=== PATIENT | female | born 1985 | race Caucasian/White ===

== ENCOUNTER 2018-04-25 20:58 | Emergency (ER) | payer OTHER ==
[2018-04-25 21:29] VITALS: BP 114/73
--- NOTE | 2018-04-25 21:39 | UC ---
Throat Pain/Nasal Morgan HPI - HPI Summary HPI Summary: Pt c/o nasal congestion, sinus pressure and pain X 10-14 days. - History of Current Complaint Chief Complaint: UCRespiratory Stated Complaint: SINUSES,COUGH,ST,PRETTY Time Seen by Provider: 04/25/18 21:18 Hx Obtained From: Patient Hx Last Menstrual Period: FEBRUARY 27, 2018, STATES WITH NEW BCP IT IS COMMON TO MISS A PERIOD ?: No Onset/Duration: Gradual Onset, Lasting Days - 10-14, Still Present, Worse Since - onset Severity: Moderate Pain Intensity: 7 Cough: Nonproductive Associated Signs & Symptoms: Positive: Hoarseness, Sinus Discomfort - Epiglottits Risk Factors Epiglottis Risk Factors: Negative - Allergies/Home Medications Allergies/Adverse Reactions: Allergies Allergy/AdvReac Type Severity Reaction Status Date / Time No Known Allergies Allergy Verified 09/17/16 11:54 Home Medications: Home Medications Estradiol Valerate/Dienogest [Natazia 28 Tablet] 1 tab PO DAILY 04/25/18 [ History Confirmed 04/25/18] Tretinoin [Retin-A] 0.1 % EX 04/25/18 [History] PMH/Surg Hx/FS Hx/Imm Hx Previously Healthy: Yes - Surgical History Surgical History: None - Family History Known Family History: Positive: Respiratory Disease - Social History Occupation: Employed Full-time Lives: With Family Alcohol Use: None Substance Use Type: None Smoking Status (MU): Never Smoked Tobacco Have You Smoked in the Last Year: No Review of Systems Constitutional: Fatigue Skin: Negative Eyes: Negative ENT: Sore Throat, Sinus Congestion, Sinus Pain/Tenderness Respiratory: Negative Cardiovascular: Negative Gastrointestinal: Negative Genitourinary: Negative Motor: Negative Neurovascular: Negative Musculoskeletal: Negative Neurological: Headache Psychological: Negative Is Patient Immunocompromised?: No All Other Systems Reviewed And Are Negative: Yes Physical Exam Triage Information Reviewed: Yes Appearance: Ill-Appearing Vital Signs: Initial Vital Signs Temp 98.6 F 04/25/18 21:24 Pulse 72 04/25/18 21:24 Resp 16 04/25/18 21:24 BP 114/73 04/25/18 21:24 Pulse Ox 100 04/25/18 21:24 Vital Signs Reviewed: Yes Eye Exam: Normal ENT Exam: Other ENT: Positive: Nasal congestion, Hoarse voice, Sinus tenderness Dental Exam: Normal Neck exam: Normal Respiratory Exam: Normal Cardiovascular Exam: Normal Musculoskeletal Exam: Normal Neurological Exam: Normal Psychological Exam: Normal Skin Exam: Normal Throat Pain/Nasal Course/Dx - Differential Dx/Diagnosis Differential Diagnosis/HQI/PQRI: Sinusitis, Tonsillitis, URI Provider Diagnoses: sinusitis Discharge - Sign-Out/Discharge Documenting (check all that apply): Patient Departure - Discharge Plan Condition: Stable Disposition: HOME Prescriptions: Amoxicillin PO (*) [Amoxicillin 875 MG (*)] 875 mg PO BID #20 tab Guaifenesin/Pseudoephedrne HCl [Mucinex D ER 1,200-120 mg Tab] 1 each PO DAILY # 10 tab Patient Education Materials: Sinusitis (ED) Referrals: Kallie Choudhury PA [Primary Care Provider] - If Needed - Billing Disposition and Condition Condition: STABLE Disposition: Home Attestation Statement User Type: Provider - I was available for consult. This patient was seen by the LETHA. The patient was not presented to, seen by, or examined by me. -Caden
[2018-04-25] MEDS ORDERED: Amoxicillin PO (*) 500 MG CAP PO ONE (21:42)
== END 2018-04-25 21:48 | disposition home or self-care (01) ==
LOC: UCCORT 20:58
DX: J32.9 Chronic sinusitis, unspecified (principal)
CPT/HCPCS: 99212; A9270-GY; G0463

== ENCOUNTER 2018-08-09 20:38 | Emergency (ER) | payer OTHER ==
--- OUTSIDE RECORDS SUMMARY | 2018-08-09 20:53 | XMS REPORT ---
:1985 External Reference #:[id number] Demographics Address [address] [place] [address] Home Phone [phone] Mobile Phone [phone] Work Phone [phone] Preferred Language Tajik Marital Status Not Or Yazidi Affiliation Unknown Race White Ethnic Group Not Or Author Organization [facility] Address [address] [place] [address] Phone [phone] Care Team Providers Name Role Phone Darci Choudhury RPAC Primary Care Physician Unavailable Payers Type Date Identification Numbers Payment Provider Subscriber Commercial Policy Number: [id number] [place] Medicaid Kasie Knox PayID: [id number] [address] [place] [address] Medicaid Expires: 2018 Policy Number: [id number] Medicaid Kasie Holbrook [employer] Name: 1 1 [address] PayID: [id number] [place] [address] Workers Compensation Policy Number: [id number] [employer] PayID: [id number] [address] [place] [address] Problems Date Description Provider Status Onset: 05/02/2014 Family history of malignant neoplasm Darci Choudhury RPAC Active of breast Onset: 02/01/2012 Varicose veins of lower extremity Darci Choudhury RPAC Active Onset: 02/01/2012 Anxiety state Darci Choudhury RPAC Active Onset: 12/14/2015 Fibrocystic disease of breast Darci Choudhury RPAC Active Onset: 08/08/2017 Cyst of thyroid Darci Choudhury RPAC Active Note: several, noted 08/2017 Onset: 10/24/2017 Acne Darci Choudhury RPAC Active Family History Date Family Member(s) Problem(s) Comments Father Hypothyroidism Mother Hypercholesterolemia Mother Breast Cancer @ 48 Mother hypoglycemia Paternal Grandmother Brain tumor Maternal Grandmother Alcoholism Maternal Aunts Breast Cancer @ 59 yrs old Social History Type Date Description Comments Lives With Lives With Daughter Lives With Son Diet Healthy, Well Balanced Occupation 07/2017 Student Masters Degree, on line Cigarette Use Former Cigarette Smoker ETOH Use Denies alcohol use Smoking Patient denies history of smoking Allergies, Adverse Reactions, Alerts Date Description Reaction Status Severity Comments 05/13/2015 NKDA active Medications Medication Date Status Form Strength Qnty SIG Indications Ordering Provider Minocycline 06/20/ Active Capsules 100mg 1 cap by YAQUELIN Dye 2018 mouth bid MD Madi Natazia 03/07/ Active Tablets 3/2-2/2-3/ 28tabs 1 tab by Awais 2017 1 mg mouth every , day M.D. Tretinoin 08/09/ Active Cream 0.025% apply to Brenda 2017 affected , area twice Naty weekly C., Aczone 08/09/ Active Gel 5% apply to [facility] 2017 affected , area twice a Naty day C., Clindamycin 08/09/ Active Solution 1% apply to [facility] Phosphate 2016 affected , area twice a Naty day C., Benzoyl 08/09/ Active Liquid 5% apply to Brenda Peroxide Wash 2017 affected , area every Naty day C., Proair HFA 03/02/ Active Aerosol 108(90Base 8.500g 1-2 493.02 Daiana 2014 ) mcg/Act m inhalations Lenore, every 4 M.D. hours as needed Mircette 12/06/ Hx Tablets 0.15-0.02/ 28tabs 1 by mouth Awais 2017 - 0.01 mg every day Fredy, 03/07/ (21/) M.D. 2018 Low-Ogestrel 02/13/ Hx Tablets 0.3-30mg-m 28tabs 1 tab by Awais 2016 - cg mouth every Fredy, 12/06/ day M.D. 2018 Claritin 02/09/ Hx Tablets 10mg 90tabs 1 by mouth Gavin 2015 - every day Carlos Fermin, 07/19/ DO 2015 Naproxen 10/16/ Hx Tablets 500mg 60tabs take one M26.60 Gavin 2015 - tablet by Carlos Fermin, 02/09/ mouth twice DO 2015 a day with food Lo/Ovral (28) 07/06/ Hx Tablets 28tabs 1 tab by Awais, 0.3-30 MG-mcg 2014 - mouth every Fredy, 02/13/ day M.D. 2016 Lo/Ovral-28 08/31/ Hx Tablets 28tabs take 1 Gavin, 2011 - tablet by Carlos Fermin, 07/06/ mouth every DO 2014 day Cephalexin / Hx Capsules 500mg 1 tab by Unknown 0000 - mouth bid 2014 Cephalexin / Hx Capsules 500mg 1 cap by Unknown 0000 mouth bid (Dr Dye) Immunizations CPT Code Status Date Vaccine Lot # [id number] Given 07/31/2018 Influenza Virus Vaccine, Quadrivalent, 36 Mos+, [id number] Given 02/28/2012 Tdap injection Vital Signs Date Vital Result Comment 07/31/2018 BP Systolic 105 mmHg BP Diastolic 68 mmHg Body Temperature 97.9 F Heart Rate 67 /min Respiratory Rate 18 /min Height 65 inches 5'5" Weight 163.25 lb BMI (Body Mass Index) 27.2 kg/m2 BSA (Body Surface Area) 1.81 m2 [place] body weight in kilograms 57 O2 % BldC Oximetry 100 % 07/20/2017 BP Systolic Sitting Left Arm 111 mmHg BP Diastolic Sitting Left Arm 70 mmHg Heart Rate 62 /min Respiratory Rate 16 /min Height 65 inches 5'5" Weight 164.00 lb BMI (Body Mass Index) 27.3 kg/m2 BSA (Body Surface Area) 1.82 m2 [place] body weight in kilograms 57 Last Menstrual Period 7024669 approximate 07/19/2016 BP Systolic Sitting Right Arm 112 mmHg BP Diastolic Sitting Right Arm 68 mmHg Height 65 inches 5'5" Weight 156.00 lb BMI (Body Mass Index) 26.0 kg/m2 BSA (Body Surface Area) 1.78 m2 Last Menstrual Period 2590911 02/10/2016 BP Systolic 118 mmHg BP Diastolic 64 mmHg Height 65 inches 5'5" Weight 154.00 lb BMI (Body Mass Index) 25.6 kg/m2 BSA (Body Surface Area) 1.77 m2 12/23/2015 BP Systolic Sitting Left Arm 109 mmHg BP Diastolic Sitting Left Arm 73 mmHg Heart Rate 70 /min Height 65 inches 5'5" Weight 153.00 lb BMI (Body Mass Index) 25.5 kg/m2 BSA (Body Surface Area) 1.77 m2 O2 % BldC Oximetry 100 % 10/16/2015 BP Systolic Sitting Left Arm 112 mmHg BP Diastolic Sitting Left Arm 68 mmHg Body Temperature 98.4 F Height 66 inches 5'6" Weight 153.25 lb BMI (Body Mass Index) 24.7 kg/m2 BSA (Body Surface Area) 1.79 m2 10/09/2015 BP Systolic Sitting Left Arm 108 mmHg BP Diastolic Sitting Left Arm 66 mmHg Heart Rate 85 /min Height 66 inches 5'6" Weight 158.25 lb BMI (Body Mass Index) 25.5 kg/m2 BSA (Body Surface Area) 1.81 m2 O2 % BldC Oximetry 100 % 07/21/2015 BP Systolic 105 mmHg Left arm sitting BP BP Diastolic 68 mmHg Left arm sitting BP BP Systolic Sitting Left Arm 118 mmHg Left arm standing BP BP Diastolic Sitting Left Arm 72 mmHg Left arm standing BP Heart Rate 72 /min Height 66 inches 5'6" Weight 152.00 lb BMI (Body Mass Index) 24.5 kg/m2 BSA (Body Surface Area) 1.78 m2 O2 % BldC Oximetry 100 % 06/19/2015 BP Systolic 110 mmHg BP Diastolic 66 mmHg Heart Rate 72 /min Height 66 inches 5'6" Weight 149.50 lb BMI (Body Mass Index) 24.1 kg/m2 BSA (Body Surface Area) 1.77 m2 O2 % BldC Oximetry 100 % 05/13/2015 BP Systolic 102 mmHg BP Diastolic 62 mmHg Height 66 inches 5'6" Weight 152.00 lb BMI (Body Mass Index) 24.5 kg/m2 BSA (Body Surface Area) 1.78 m2 Last Menstrual Period [id number] 03/02/2015 Body Temperature 96.4 F Heart Rate 77 /min Respiratory Rate 18 /min Weight 154.00 lb O2 % BldC Oximetry 97 % 06/27/2014 BP Systolic 112 mmHg BP Diastolic 62 mmHg Height 65 inches 5'5" Weight 145.00 lb 05/02/2014 BP Systolic 102 mmHg BP Diastolic 66 mmHg Height 65 inches 5'5" Weight 148.00 lb 10/23/2013 BP Systolic 104 mmHg BP Diastolic 62 mmHg Body Temperature 100.0 F Height 65 inches 5'5" Weight 148.00 lb BSA (Body Surface Area) 1.74 m2 04/16/2013 BP Systolic 110 mmHg BP Diastolic 62 mmHg Height 65 inches 5'5" Weight 140.00 lb BSA (Body Surface Area) 1.70 m2 03/19/2013 BP Systolic 110 mmHg BP Diastolic 62 mmHg Weight 141.00 lb 07/06/2012 BP Systolic 110 mmHg BP Diastolic 62 mmHg Body Temperature 98.7 F Weight 142.00 lb 04/05/2012 BP Systolic 90 mmHg BP Diastolic 62 mmHg Heart Rate 76 /min Height 65 inches 5'5" Weight 145.00 lb 02/02/2012 BP Systolic 108 mmHg BP Diastolic 66 mmHg Weight 148.00 lb 07/15/2011 BP Systolic 96 mmHg BP Diastolic 60 mmHg Body Temperature 97.2 F Height 65 inches 5'5" Weight 146.00 lb 06/02/2011 BP Systolic 108 mmHg BP Diastolic 62 mmHg Height 65 inches 5'5" Weight 146.00 lb Results Test Date Test Result H/L Range Note LDL Cholesterol Profile 07/31/2018 Cholesterol 204 mg/dL High <200 1, 2 Triglycerides 139 mg/dL <150 1, 3 HDL Cholesterol 84 mg/dL >40 1, 4 LDL-Cholesterol 92 mg/dL < 100 1, 5 Comprehensive Metabolic Panel 07/31/2018 Glucose 84 mg/dL 74-106 1 BUN 15 mg/dL 7-18 1 Creatinine 0.8 mg/dL 0.6-1.3 1 Glom Filtration Rate, Estimate >60 mL/min >60 1 If >60 mL/min >60 1, 6 BUN/Creat 18.7 ratio 1 Sodium 143 mmol/L 136-145 1 Potassium 4.1 mmol/L 3.5-5.1 1 Chloride 107 mmol/L 98-107 1 Carbon Dioxide 29 mmol/L 21-32 1 Anion Gap 7 mEq/L Low 8-16 1 Calcium 8.7 mg/dL 8.5-10.1 1 Total Protein 6.6 g/dL 6.4-8.2 1 Albumin 3.6 g/dL 3.4-5.0 1 Globulin 3.0 g/dL 1.9-4.3 1 Alb/Glob 1.2 ratio 1 Bilirubin,Total 0.4 mg/dL 0.2-1.0 1 Sgot/Ast 23 U/L 15-37 1 SGPT/Alt 34 U/L 12-78 1 Alkaline Phosphatase 57 U/L 45-117 1 CBC W/Automated Diff 07/31/2018 White Blood Count 4.8 K/uL 3.1-10.7 1 Red Blood Count 4.62 M/uL 3.90-5.40 1 Hemoglobin 14.1 gm/dL 11.6-15.8 1 Hematocrit 42.0 % 36.0-46.1 1 Mean Cell Volume 90.9 fl 80.9-99.0 1 Mean Corpuscular HGB 30.5 pg 25.9-32.7 1 Mean Corpuscular HGB Conc 33.6 g/dL 30.8-34.3 1 Platelet Count 278 K/uL 155-360 1 Red Cell Distri Width SD 41.0 fl 3-47 1 Red Cell Distri Width %CV 12.6 % 11.7-14.4 1 Mean Platelet Volume 10.3 fL 8.9-12.4 1 Neut% 45.4 % 40.4-72.8 1 Lymph % 40.3 % 20.0-42.0 1 [place] % 8.5 % 4.3-13.2 1 Eo% 5.0 % 0.0-6.6 1 Bas% 0.8 % 0.0-1.1 1 Neut# 2.20 K/uL 1.8-7.0 1 Lymph # 1.95 K/uL 1.0-4.0 1 [place] # 0.41 K/uL 0.3-0.9 1 Eos # 0.24 K/uL 0.0-0.5 1 Baso # 0.04 K/uL 0.0-0.1 1 TSH Reflex FT4 And/Or FT3 07/20/2017 Thyroid Stim Hormone 4.01 uIU/mL 0.30-4.20 7 Reflex add FT3? Y 7 Reflex add FT4? Y 7 Comprehensive Metabolic Panel 07/20/2017 Glucose 64 mg/dL Low 74-106 7 BUN 17 mg/dL 7-18 7 Creatinine 1.0 mg/dL 0.6-1.3 7 Glom Filtration Rate, Estimate >60 mL/min >60 7 If >60 mL/min >60 7, 8 BUN/Creat 17.0 ratio 7 Sodium 142 mmol/L 136-145 7 Potassium 4.0 mmol/L 3.5-5.1 7 Chloride 106 mmol/L 98-107 7 Carbon Dioxide 28 mmol/L 21-32 7 Anion Gap 8 mEq/L 8-16 7 Calcium 8.5 mg/dL 8.5-10.1 7 Total Protein 6.4 g/dL 6.4-8.2 7 Albumin 3.3 g/dL Low 3.4-5.0 7 Globulin 3.1 g/dL 1.9-4.3 7 Alb/Glob 1.1 ratio 7 Bilirubin,Total 0.5 mg/dL 0.2-1.0 7 Sgot/Ast 12 U/L Low 15-37 7, 9 SGPT/Alt 22 U/L 12-78 7 Alkaline Phosphatase 47 U/L 45-117 7 Reflex add FT3? Y 7 Reflex add FT4? Y 7 CBS W/Automated Diff 07/20/2017 White Blood Count 5.2 K/uL 3.1-10.7 7 Red Blood Count 4.80 M/uL 3.90-5.40 7 Hemoglobin 14.6 gm/dL 11.6-15.8 7 Hematocrit 43.0 % 36.0-46.1 7 Mean Cell Volume 89.6 fl 80.9-99.0 7 Mean Corpuscular HGB 30.4 pg 25.9-32.7 7 Mean Corpuscular HGB Conc 34.0 g/dL 30.8-34.3 7 Platelet Count 280 K/uL 150-400 7 Red Cell Distri Width SD 40.5 fl 3-47 7 Red Cell Distri Width %CV 12.6 % 11.7-14.4 7 Mean Platelet Volume 10.4 fL 8.9-12.4 7 Neut% 51.1 % 40.4-72.8 7 Lymph % 36.6 % 20.0-42.0 7 [place] % 6.9 % 4.3-13.2 7 Eo% 4.8 % 0.0-6.6 7 Bas% 0.6 % 0.0-1.1 7 Neut# 2.68 K/uL 1.8-7.0 7 Lymph # 1.92 K/uL 1.0-4.0 7 [place] # 0.36 K/uL 0.3-0.9 7 Eos # 0.25 K/uL 0.0-0.5 7 Baso # 0.03 K/uL 0.0-0.1 7 Laboratory test finding 07/20/2017 Vitamin D,25-Hydroxy 42.7 ng/mL 30.0- 100.0 7, 10 Comprehensive Metabolic 07/22/2015 Glucose 94 mg/dL 74-106 Panel BUN 13 mg/dL 7-18 Creatinine 0.9 mg/dL 0.6-1.3 Glom Filtration Rate, Estimate >60 mL/min >60 If >60 mL/min >60 11 BUN/Creat 14.4 ratio Sodium 142 mmol/L 136-145 Potassium 3.7 mmol/L 3.5-5.1 Chloride 108 mmol/L High 98-107 Carbon Dioxide 27 mmol/L 21-32 Anion Gap 7 mEq/L Low 8-16 Calcium 8.9 mg/dL 8.5-10.1 Total Protein 6.9 g/dL 6.4-8.2 Albumin 3.6 g/dL 3.4-5.0 Globulin 3.3 g/dL 1.9-4.3 Alb/Glob 1.1 ratio Bilirubin,Total 0.6 mg/dL 0.2-1.0 Sgot/Ast 14 U/L Low 15-37 12 SGPT/Alt 23 U/L 12-78 Alkaline Phosphatase 46 U/L 45-117 Laboratory test finding 07/22/2015 Thyroid Stim Hormone 1.64 uIU/mL 0.36- 3.74 CBS W/Automated Diff 07/22/2015 White Blood Count 5.9 K/uL 3.1-10.7 Red Blood Count 4.76 M/uL 3.90-5.40 Hemoglobin 14.7 gm/dL 11.6-15.8 Hematocrit 43.3 % 36.0-46.1 Mean Cell Volume 91.0 fl 80.9-99.0 Mean Corpuscular HGB 30.9 pg 25.9-32.7 Mean Corpuscular HGB Conc 33.9 g/dL 30.8-34.3 Platelet Count 292 K/uL 155-360 Red Cell Distri Width SD 40.4 fl 3-47 Red Cell Distri Width %CV 12.5 % 11.7-14.4 Mean Platelet Volume 10.3 fL 8.9-12.4 Neut% 54.3 % 40.4-72.8 Lymph % 36.0 % 17.0-46.1 [place] % 6.8 % 4.3-13.2 Eo% 2.4 % 0.0-6.6 Bas% 0.5 % 0.0-1.1 Neut# 3.21 K/uL 1.0-7.0 Lymph # 2.13 K/uL 1.8-7.0 [place] # 0.40 K/uL 0.3-0.9 Eos # 0.14 K/uL 0.0-0.5 Baso # 0.03 K/uL 0.0-0.1 Affirm 06/27/2014 Tavia Negative 13 Gardnerella Negative Trichomonas Negative Laboratory test finding 05/02/2014 Cytology Pap See Note 14 Laboratory test finding 04/16/2013 Pediatric/Maternal No RPR TNP Nonreactive RPR Titer TNP Syphilis IgG Nonreactive Nonreactive 15 GC / Chlamydia 04/16/2013 Chlamydia Negative GC Negative 16 Laboratory test finding 04/16/2013 Pap plus HPV HPV HR- LRQ 17 Lipid Profile (Trig/Chol/HDL) 04/16/2013 Cholesterol 157 mg/dL Less than 200 Cholesterol/HDL Ratio 3.1 Average 1-4.44 HDL Cholesterol 51 mg/dL 40-60 18 LDL Cholesterol 92.4 Less Than 100 19 Triglycerides 68 mg/dL 40-200 Hepatitis Acute Panel 04/16/2013 Hepatitis A AB IgM Nonreactive Nonreactive Hepatitis B Core IgM Nonreactive Nonreactive Hepatitis B Surface Antigen Nonreactive Nonreactive Hepatitis C Antibody Nonreactive Nonreactive HIV 1/2 AB Evaluation 04/16/2013 HIV 1 2 Antibody Nonreactive Nonreactive 20 CBC Auto Diff 04/16/2013 Abs Basophils 0.1 10^3/uL 0-0.2 Abs Eosinophils 0.1 10^3/uL 0-0.6 Abs Lymphocytes 2.2 10^3/uL 1.0-4.8 Abs Monocytes 0.4 10^3/uL 0-0.8 Abs Neutrophils 3.6 10^3/uL 1.5-7.7 Abs Nucleated RBC 0.01 10^3/uL Basophil % 0.9 % 0-2 Eosinophil % 1.8 % 0-6 Granulocyte % 56.5 % 38-83 Hematocrit 44 % 35-47 Hemoglobin 14.9 g/dL 12.0-16.0 Lymphocyte % 34.7 % 25-47 Mean Corpuscular HGB Conc 34 g/dL 31-36 Mean Corpuscular Hemoglobin 31 pg 27-31 Mean Corpuscular Volume 90 fL 80-97 Mean Platelet Volume 8 um3 7.4-10.4 Monocyte % 6.1 % 1-9 Nucleated Red Blood Cells % 0.1 Platelet Count 318 10^3/uL 150-450 Red Blood Count 4.88 10^6/uL 4.0-5.4 Red Cell Distribution Width 13 % 10.5-15 White Blood Count 6.4 10^3/uL 4.8-10.8 Basic Metabolic Panel 04/16/2013 Anion Gap 5.0 mmol/L 2-11 BUN/Creatinine Ratio 18.8 8-20 Blood Urea Nitrogen 15 mg/dL 6-24 Calcium 9.4 mg/dL 8.1-9.9 Chloride 103 mmol/L 101-111 Co2 Carbon Dioxide 29.0 mmol/L 22-32 Creatinine 0.80 mg/dL 0.50-1.40 Egfr 109.1 >60 21 Egfr Non- 84.8 >60 Glucose 74 mg/dL 70-100 Potassium 4.4 mmol/L 3.5-5.0 Sodium 137 mmol/L 133-145 Laboratory test finding 04/05/2012 Cytology Pap See Note 22 Laboratory test finding 02/08/2012 D-Dimer, Quantitative < 0.22 ug/mL 23 Laboratory test finding 08/16/2011 Folic Acid 18.9 ng/mL High 2-16 TSH 1.88 MIU/ML 0.34-5.60 Vitamin B12 255 pg/mL 180-914 CBC With Manual Diff 08/16/2011 Absolute Neutrophil Count 3.1 Eosinophil 3 % 0-6 Hematocrit 42 % 35-47 Hemoglobin 14.6 g/dL 12.0-16.0 Lymphocyte 51 % High 25-47 Mean Corpuscular HGB Cone 35 g/dL 32-36 Mean Corpuscular Hemoglob 32 pg High 27-31 Mean Corpuscular Volume 90 um3 79-97 Mean Platelet Volume 8.1 um3 7.4-10.4 Monocyte 1 % 0-13 Platelet Count 266 CUMM 150-450 Polychromasia Slight Polysegmented Neutrophil 45 % 38-83 Red Cell Count 4.62 CUMM 4.2-5.4 Redcell Distribution WDTH 12 % 10.5-15 White Blood Count 7.0 CUMM 4.8-10.8 1 E78.5 L70.9 2 Reference Guidelines*: Desirable: ........... < 200 mg/dL Borderline High: ..... 200-239 mg/dL High: ................ >=240 mg/dL * The National Cholesterol Education Program (NCEP) 3 Reference Guidelines*: Normal: ............. < 150 mg/dL Borderline High: .... 150-199 mg/dL High: ............... 200-499 mg/dL Very High: .......... > 500 mg/dL * Source: National Cholesterol Education Program (NCEP) 4 Reference Guidelines*: Low HDL: ..... < 40 mg/dL Normal: ..... 40-60 mg/dL Desirable: ... > 60 mg/dL *The National Cholesterol Education Program(NCEP) 5 Reference Guidelines*: Optimal:........... <100 mg/dL Near Optimal....... 100-129 mg/dL Borderline High.... 130-159 mg/dL High............... 160-189 mg/dL Very High.......... >=190 mg/dL * Source: National Cholesterol Education Program (NCEP) 6 Note: Persistent reduction for 3 months or more in an eGFR <60 mL/min/1.73 m2 defines CKD. Patients with eGFR values >/=60 mL/min/1.73 m2 may also have CKD if evidence of persistent proteinuria is present. The original MDRD equation for estimated GFR is not valid for patients less than 18 years of age. Additional information may be found at www.kdoqi.org. 7 Z12.4 E04.1 L70.9 E04.1 L70.9 Z12.4 8 Note: Persistent reduction for 3 months or more in an eGFR <60 mL/min/1.73 m2 defines CKD. Patients with eGFR values >/=60 mL/min/1.73 m2 may also have CKD if evidence of persistent proteinuria is present. The original MDRD equation for estimated GFR is not valid for patients less than 18 years of age. Additional information may be found at www.kdoqi.org. 9 Values below the stated reference ranges of AST and ALT can be seen in normal populations. Clinical correlation is suggested. 10 Vitamin D deficiency has been defined by the [place] of Medicine and an Endocrine Society practice guideline as a level of serum 25-OH vitamin D less than 20 ng/mL (1,2). The Endocrine Society went on to further define vitamin D insufficiency as a level between 21 and 29 ng/mL (2). 1. IOM ([place] of Medicine). 2010. Dietary reference intakes for calcium and D. [place]: The National Academies Press. 2. Margaret MF, Jyothi NC, Denzel PRETTY, et al. Evaluation, treatment, and prevention of vitamin D deficiency: an Endocrine Society clinical practice guideline. JCEM. 2010; 96(7):1911-30. Performed at: RN - [facility] [address] [id number] [employer]: Xiomara Bay MD, Phone: [phone] 11 Note: Persistent reduction for 3 months or more in an eGFR <60 mL/min/1.73 m2 defines CKD. Patients with eGFR values >/=60 mL/min/1.73 m2 may also have CKD if evidence of persistent proteinuria is present. The original MDRD equation for estimated GFR is not valid for patients less than 18 years of age. Additional information may be found at www.kdoqi.org. 12 Values below the stated reference ranges of AST and ALT can be seen in normal populations. Clinical correlation is suggested. 13 [facility] [address], [address] [place] [address] AFFIRM VAGINOSIS / VAGINITIS REPORT Name: Kasie Knox : 1985 (Age: 29) Sex: F Location: [facility] Med. Rec. # [id number] Date Collected: 2013 Billing #: [id number] Date Received: 06/27/2014 Requisition # [id number] Physician (s): DARCI BHAT Source of Specimen: Vaginal Results: Tavia species DNA Probe NEGATIVE Gardnerella vaginalis DNA Probe NEGATIVE Trichomonas vaginalis DNA Probe NEGATIVE Reported: 06/30/2014 Electronic Signature ga Kelsey Camar[place] [facility] ICD-9 Codes: 616.10 14 Cytology Laboratory [address], [address] [email or web address] [address] CYTOLOGY REPORT Name: Kasie Knox : 1985 (Age: 29) Sex: F Location: [facility]. Rec. # [id number] Date Collected: 05/02/2014 Billing #: [id number] Date Received: 05/02/2014 Requisition # [id number] Physician(s): DARCI BHAT Source of Specimen: ENDOCERVICAL/ECTOCERVICAL THIN PREP Clinical Information: Date of Last Menstrual Period: 04/05/14 Interpretation: NEGATIVE FOR INTRAEPITHELIAL LESION OR MALIGNANCY. Specimen Adequacy: SATISFACTORY FOR EVALUATION. Additional Findings: ENDOCERVICAL/TRANSFORMATION ZONE PRESENT. mas Electronic Signature LIEN Vann (ASCP) Reported: 05/07/2014 [facility] [employer] [facility] ICD-9 Code(s) V76.2 15 Warning: A positive result is not useful for establishing a diagnosis of syphilis. In most situations, such a result may reflect a prior treated infection; a negative result can exclude a diagnosis of syphilis except for incubating or early primary disease. 16 [facility] [address], [address] [place] [address] GC / CHLAMYDIA REPORT Name: Ata Kasie SheronDivina : 1985 (Age: 28) Sex: F Location: [facility]. Rec. # [id number] Date Collected: 04/16/2013 Billing #: [id number] Date Received: 04/16/2013 Physician(s): DARCI BAHT Source of Specimen: ThinPrep, APTIMA Results: Neisseria gonorrhoeae NEGATIVE Chlamydia trachomatis NEGATIVE Comment: This analysis was performed using second generation nucleic acid amplification testing (NAAT). Reported: 04/17/2013 Electronic Signature lien [place]ar[place] [facility] [employer] [facility] ICD-9 Codes: A: 616.0 17 Cytology Laboratory [address], [address] [place] [address] CYTOLOGY REPORT Name: Kasie Berumen : 1985 (Age: 28) Sex: F Location: [facility] Rec. # [id number] Date Collected: 04/16/2013 Billing #: [id number] Date Received: 04/16/2013 Physician(s): DARCI BHAT Source of Specimen: ENDOCERVICAL/ECTOCERVICAL THIN PREP Clinical Information: Date of Last Menstrual Period: 04/09/13 Menstrual History: Regular Specimen Adequacy: SATISFACTORY FOR EVALUATION. ADEQUATE ENDOCERVICAL/TRANSFORMATION ZONE. SCANT CELLULARITY. General Categorization: NEGATIVE FOR INTRAEPITHELIAL LESION OR MALIGNANCY. kfs Electronic Signature LIEN Johns (ASCP) Reported: 04/18/2013 Also seen by :LIEN Grullon (ASCP) Cyt[facility] HPV High Risk Date Ordered: 04/17/2013 Status: Signed Out Date Reported: 04/18/2013 High Risk NEGATIVE (HPV types 16, 18, 31, 33, 35, 39, 45, 51, 52, 56, 58, 59, 66, 68) Cervista HPV HR Electronic Signature Tali Live PA [facility] HPV Low Risk Date Ordered: 04/17/2013 Status: Signed Out Date Reported: 04/18/2013 Low Risk QUANTITY NOT SUFFICIENT (HPV types 6, 11) In situ hybridization Electronic Signature Eduard Villegas MD [facility] ICD-9 Code(s) V72.31 18 HDL Interpretation: Undesirable: High Risk: Less than 40 mg/dL Desirable: Low Risk: Greater than 60 mg/dL 19 LDL Interpretation: Low Risk Optimal Level: LDL Less than 100 mg/dL Near or Above Optimal: LDL 100-129 mg/dL Borderline High Risk: LDL 130-159 mg/dL High Risk : LDL 160-189 mg/dL Very High Risk: LDL Greater than 189 mg/dL 20 It is recognized that currently available assays for the detection of antibodies to HIV-1 and/or HIV-2 may not detect all infected individuals. HIV antibodies may be undetectable in some stages of the infection and in some clinical conditions. The performance of this assay has not been established for populations of infants or children. Assayed by Chemiluminescence Microparticle Immunoassay on the Siemens Advia MedServeaur CP. Values obtained with different methods or kits cannot be used interchangeably.The diagnostic specificity of the ADVIA Centaur 1/O/2 Enhanced assay in the low risk population was 99.90% (6052/6058) with a 95% confidence interval of 99.78 to 99.96%. 21 Because ethnic data is not always readily available, this report includes an eGFR for both -Americans and non- Americans. The National Kidney Disease Education Program (NKDEP) does not endorse the use of the MDRD equation for patients that are not between the ages of 18 and 70, are , have extremes of body size, muscle mass, or nutritional status, or are non- or non-. According to the National Kidney Foundation, irrespective of diagnosis, the stage of the disease is based on the level of kidney function: Stage Description GFR(mL/min/1.73 m(2)) 1 Kidney damage with normal or decreased GFR 90 2 Kidney damage with mild decrease in GFR 60- 89 3 Moderate decrease in GFR 30-59 4 Severe decrease in GFR 15-29 5 Kidney failure <15 (or dialysis) 22 Cytology Laboratory [address] [place] [address], [address] [place] [address] CYTOLOGY REPORT Name: Kasie Berumen : 1985 (Age: 27) Sex: F Location: [facility] Date Collected: 04/05/2012 Billing #: [id number] Date Received: 04/05/2012 Physician( s): DARCI BHAT Source of Specimen: ENDOCERVICAL/ECTOCERVICAL THIN PREP Clinical Information: Date of Last Menstrual Period: 03/09/12 Menstrual History: Regular Specimen Adequacy: SATISFACTORY FOR EVALUATION. ADEQUATE ENDOCERVICAL/TRANSFORMATION ZONE. General Categorization: NEGATIVE FOR INTRAEPITHELIAL LESION OR MALIGNANCY. tfn Electronic Signature LIEN Munoz (ASCP) Reported: 04/09/2012 Cytology Outreach [facility] ICD-9 Code(s) V72.31 23 <=0.49 ug/mL - Low likelihood of DIC, DVT or Pulmonary Embolism >0.49 ug/ mL - Additional testing should be done to rule out DIC, DVT, or Pulmonary embolism as clinically indicated. ([facility] has established a 97.89% negative predictive value for thrombotic disease when a cutoff value of 0.5 ug/mL is used.) Procedures Date CPT Code Description Status 07/22/2015 42451 Event Monitor Inter/Review Only Completed 07/21/2015 25850 EKG-Tracing And Report Completed 08/25/2009 13789 Pulse Oximetry Completed Encounters Type Date Location Provider CPT E/M Dx Office Visit 07/20/2017 9:00a Primary Care Office Darci Choudhury 43063 Z00.01 [facility] Z12.4 E04.1 L70.9 Office Visit 07/19/2016 9:00a Primary Care Office Darci Choudhury 39925 Z12.4 [facility] N60.19 I83.891 Z00.01 Office Visit 02/10/2016 9:30a Primary Care Office Darci Choudhury 79282 R59.0 [facility] Office Visit 01/22/2016 11:30a [place] [address] Z80.3 N60.19 Office Visit 12/31/2015 11:00a [place] [address] R59.0 Office Visit 12/23/2015 10:45a Primary Care Office Darci Choudhury 18921 R59.0 [facility] M79.1 Z80.3 N60.19 Office Visit 10/16/2015 11:15a Primary Care Office Darci Choudhury 90486 M26.60 [facility] Office Visit 10/09/2015 10:00a Primary Care Office Darci Choudhury 79161 I49.9 [facility] Office Visit 07/21/2015 1:00p Primary Care Office Darci Choudhury 30089 R42 RPA Office Visit 06/19/2015 2:30p Primary Care Office Darci Choudhury 73979 R42 [facility] R59.0 Office Visit 05/13/2015 2:15p Primary Care Office Darci Choudhury 51314 V72.31 [facility] V76.2 611.79 Office Visit 03/02/2015 10:30a Primary Care Office Darci Choudhury 05449 493.02 [facility] Plan of Care 07/31/2018 - Darci Choudhury, RPACZ00.00 Encntr for general adult medical exam w/o abnormal xxzevdumS39.9 Acne, cdunaenztopT12.5 Hyperlipidemia, [id number] Encounter for immunizationComments:Seasonal influenza vaccine given today.
[2018-08-09 21:04] VITALS: BP 133/67
--- NOTE | 2018-08-09 21:15 | UC ---
Lower Extremity/Ankle HPI - HPI Summary HPI Summary: Pt c/o right foot pain after jumping over "baby gate" and landing on top of gate with foot caught under gate. Pt c/o pain with weight bearing. - History of Current Complaint Chief Complaint: UCLowerExtremity Stated Complaint: R FOOT INJURY Time Seen by Provider: 08/09/18 21:02 Hx Obtained From: Patient Hx Last Menstrual Period: 06/26/18 ?: No Onset/Duration: Sudden Onset, Lasting Hours, Still Present Severity Initially: Moderate Severity Currently: Moderate Pain Intensity: 4 Aggravating Factor(s): Standing, Ambulation Alleviating Factor(s): Rest, Elevation, Ice Able to Bear Weight: Yes - Risk Factors Gout Risk Factors: Negative DVT Risk Factors: Negative Septic Arthritis Risk Factor: Negative - Allergies/Home Medications Allergies/Adverse Reactions: Allergies Allergy/AdvReac Type Severity Reaction Status Date / Time No Known Allergies Allergy Verified 08/09/18 20:55 PMH/Surg Hx/FS Hx/Imm Hx Previously Healthy: Yes - Surgical History Surgical History: None - Family History Known Family History: Positive: Respiratory Disease - Social History Occupation: Employed Full-time Lives: With Family Alcohol Use: None Substance Use Type: None Smoking Status (MU): Former Smoker Have You Smoked in the Last Year: No Review of Systems All Other Systems Reviewed And Are Negative: Yes Constitutional: Positive: Negative Skin: Positive: Bruising - right foot Eyes: Positive: Negative ENT: Positive: Negative Respiratory: Positive: Negative Cardiovascular: Positive: Negative Gastrointestinal: Positive: Negative Genitourinary: Positive: Negative Motor: Positive: Negative, Weakness - pain with right bearing. Musculoskeletal: Positive: Arthralgia, Myalgia Neurological: Positive: Negative Psychological: Positive: Negative Is Patient Immunocompromised?: No Physical Exam Triage Information Reviewed: Yes Appearance: Well-Appearing Vital Signs: Initial Vital Signs Temp 98.1 F 08/09/18 20:57 Pulse 91 08/09/18 20:57 Resp 18 08/09/18 20:57 BP 133/67 08/09/18 20:57 Pulse Ox 100 08/09/18 20:57 Vital Signs Reviewed: Yes ENT Exam: Normal ENT: Positive: Hearing grossly normal Dental Exam: Normal Neck exam: Normal Respiratory: Positive: No respiratory distress Musculoskeletal: Positive: Strength Limited @ - secondary to pain, medial aspect right foot, ROM Limited @ - pain with weight bearing medial aspect Neurological Exam: Normal Psychological Exam: Normal Skin Exam: Normal Diagnostics - Laboratory Diagnostic Studies Completed/Ordered: xray: not read by radiologist. negative for fracture Lower Extremity Course/Dx - Differential Dx/Diagnosis Differential Diagnosis/HQI/PQRI: Contusion, Sprain, Strain Provider Diagnoses: right foot sprain Discharge - Sign-Out/Discharge Documenting (check all that apply): Patient Departure All imaging exams completed and their final reports reviewed: No - Discharge Plan Condition: Stable Disposition: HOME Patient Education Materials: Foot Sprain (ED) Referrals: Kallie Choudhury PA [Primary Care Provider] - If Needed Asael Ag MD [Medical Doctor] - If Needed - Billing Disposition and Condition Condition: STABLE Disposition: Home - Attestation Statements Provider Attestation: I was available for consult. This patient was seen by the LETHA. The patient was not presented to, seen by, or examined by me. -Caden
--- NOTE | 2018-08-10 08:15 | UC ---
- Progress Note Progress Note: Patient Name: TONE SERRANO Medical Record#: [id number] Ordering Physician: Loli Burns NP Acct.#: [id number] : 1985 Age: 33 Sex: F Location: [facility] Exam Date: 08/09/182109 ADM Status: DEP ER Order Information: FOOT RIGHT 3+ VWS Accession Number: [id number] CPT: 90447 HISTORY: fall while running COMPARISONS: None VIEWS: 3 , Frontal, lateral, and oblique views of the right foot FINDINGS: BONE DENSITY: Normal. BONES: There is no displaced fracture. JOINTS: There is no arthropathy. ALIGNMENT: There is no dislocation. SOFT TISSUES: Unremarkable. OTHER FINDINGS: None. IMPRESSION: NO ACUTE OSSEOUS INJURY. IF SYMPTOMS PERSIST, RECOMMEND REPEAT IMAGING. R0 Preliminary Imaging Read NO DISCREPANCY <Electronically signed by Paul Lee MD in OV> 08/10/18801 Dictated By: Paul Lee MD Dictated Date/Time: 08/10/18801 Transcribed Date/Time: 08/10/18800 Copy to: CC:Dee Ott MD; Loli Burns NP; Kallie DOSHI Imaging - [facility] [address] [place] [address] ph ([phone]) ph ([phone]) ph ([phone]) This report is only to be considered final once signed by the Provider(s) as displayed in the "<Electronically Signed by >" field (s). Absence of a signature indicates the report is in a draft status and still needs to be finalized. In the event this document was created by someone other than the signing Provider, the individual initiating the document will be listed in the "Entered by:" or "Dictated by:" delaney. 1 of 2 Discharge - Sign-Out/Discharge Documenting (check all that apply): Post-Discharge Follow Up All imaging exams completed and their final reports reviewed: Yes - Discharge Plan Condition: Stable Disposition: HOME Patient Education Materials: Foot Sprain (ED) Referrals: Asael Ag MD [Medical Doctor] - If Needed Kallie Choudhury PA [Primary Care Provider] - If Needed - Billing Disposition and Condition Condition: STABLE Disposition: Home
== END 2018-08-09 21:45 | disposition home or self-care (01) ==
LOC: UCCORT 20:38
DX: S93.601A Unspecified sprain of right foot, initial encounter (principal); Z87.891 Personal history of nicotine dependence; W23.0XXA Caught, crushed, jammed, or pinched between moving objects, initial encounter; Y93.39 Activity, other involving climbing, rappelling and jumping off; Y92.9 Unspecified place or not applicable
CPT/HCPCS: 99212; G0463